=== PATIENT | male | born 1995 | race Caucasian/White ===

== ENCOUNTER 2020-02-22 13:04 | Emergency (ER) | payer MEDICAID ==
[~2020-02-22] VITALS: Ht 175.3 cm; Wt 65.8 kg
[2020-02-22 13:07] VITALS: BP 145/59
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
--- NOTE | 2020-02-22 13:30 | NUR ---
[facility] EVALUATING PT AT BEDSIDE
[2020-02-22] MEDS ORDERED: LIDOCAINE 2% 1000 MG/50 ML VIAL INJ ONE (13:45)
[2020-02-22] MEDS ORDERED: BACITRACIN OINT 500 UNITS/GM PKT TP ONE (13:55)
[2020-02-22 14:11] VITALS: BP 145/59
--- NOTE | 2020-02-22 14:12 | NUR ---
Patient discharged with v/s stable. Written and verbal after care instructions given and explained. Patient verbalized understanding. Ambulatory with steady gait. All questions addressed prior to discharge. Advised to follow up with PMD.
== END 2020-02-22 14:12 ==
LOC: MED 13:04
DX: S01.81XA Laceration without foreign body of other part of head, initial encounter (principal); Z02.89 Encounter for other administrative examinations; W22.8XXA Striking against or struck by other objects, initial encounter; Y93.89 Activity, other specified; Y92.89 Other specified places as the place of occurrence of the external cause; Y99.8 Other external cause status
CPT/HCPCS: 12011; 90471; 90715; 99283; J2001